=== PATIENT | male | born 1940 | race Caucasian/White ===

== ENCOUNTER → 2016-09-08 | Outpatient (CLI) | payer OTHER ==
[2016-09-08 14:01] LABS: ESTIMATED AVERAGE GLUCOSE 117 mg/dl; HA1C FLAG Normal (Normal)
[2016-09-08 16:02] LABS: AST/SGOT 11 U/L (15-37); BLOOD UREA NITROGEN 21 mg/dl (7-18); BUN/CREATININE RATIO 21.8 (10-20); CARBON DIOXIDE 28 mmol/L (21-32); CHLORIDE 104 mmol/L (98-107); CREATININE 0.95 mg/dl (0.60-1.40); GLUCOSE 110 mg/dl (70-99); POTASSIUM 4.3 mmol/L (3.5-5.1); SODIUM 141 mmol/L (136-145)
[2016-09-08 16:06] LABS: ALT/SGPT 25 U/L (12-78); CHOLESTEROL 108 mg/dl (0-200); CHOLESTEROL/HDL RATIO 2.5; HDL CHOLESTEROL 43 mg/dl; LDL CHOLESTEROL CALCULATED 48 mg/dl; TRIGLYCERIDES 84 mg/dl (0-150); VERY LOW DENSITY LIPOPROT CALC 17 mg/dl
[2016-09-08 16:33] LABS: RATIO 5.4 mcg/mg (0-30.0)
== END | disposition home or self-care (01) ==
LOC: C.LABMFLN 07:23
PROVIDERS: ATTEND Family Medicine
DX: M10.9 Gout, unspecified (principal); I10 Essential (primary) hypertension; E78.00 Pure hypercholesterolemia, unspecified; E11.40 Type 2 diabetes mellitus with diabetic neuropathy, unspecified

== ENCOUNTER → 2017-03-26 | Outpatient (CLI) | payer OTHER ==
[2017-03-26 13:25] LABS: ALT/SGPT 30 U/L (12-78); BLOOD UREA NITROGEN 17 mg/dl (7-18); BUN/CREATININE RATIO 15.2 (10-20); CALCIUM 9.6 mg/dl (8.5-10.1); CARBON DIOXIDE 31 mmol/L (21-32); CHLORIDE 105 mmol/L (98-107); CHOLESTEROL 111 mg/dl (0-200); GLUCOSE 107 mg/dl (70-99); POTASSIUM 4.4 mmol/L (3.5-5.1); SODIUM 141 mmol/L (136-145)
[2017-03-26 13:28] LABS: ALB/GLOB RATIO 1.3 (0.9-2); ALKALINE PHOSPHATASE 79 U/L (45-117); AST/SGOT 16 U/L (15-37); CHOLESTEROL/HDL RATIO 2.7; HDL CHOLESTEROL 41 mg/dl; LDL CHOLESTEROL CALCULATED 41 mg/dl; TRIGLYCERIDES 147 mg/dl (0-150); VERY LOW DENSITY LIPOPROT CALC 29 mg/dl
[2017-03-26 14:01] LABS: ESTIMATED AVERAGE GLUCOSE 114 mg/dl; HA1C FLAG Normal (Normal)
== END | disposition home or self-care (01) ==
LOC: C.LABMFLN 06:56
PROVIDERS: ATTEND Family Medicine
DX: I10 Essential (primary) hypertension (principal); M10.9 Gout, unspecified; E78.00 Pure hypercholesterolemia, unspecified; E11.40 Type 2 diabetes mellitus with diabetic neuropathy, unspecified

== ENCOUNTER → 2017-07-31 | Outpatient (CLI) | payer OTHER | END | disposition home or self-care (01) | LOC: C.LABMFLN 10:51 | PROVIDERS: ATTEND Family Medicine | DX: R10.9 Unspecified abdominal pain (principal) ==

== ENCOUNTER → 2017-09-28 | Outpatient (CLI) | payer OTHER ==
[2017-09-28 12:52] LABS: HEMOGLOBIN A1C 5.8 % (4.5-5.6)
[2017-09-28 16:17] LABS: ALT/SGPT 33 U/L (12-78); BLOOD UREA NITROGEN 15 mg/dl (7-18); CARBON DIOXIDE 32 mmol/L (21-32); CHOLESTEROL 115 mg/dl (0-200); GLUCOSE 108 mg/dl (70-99); SODIUM 141 mmol/L (136-145); URIC ACID 4.2 mg/dl (2.6-7.2)
[2017-09-28 16:20] LABS: ALKALINE PHOSPHATASE 73 U/L (45-117); AST/SGOT 17 U/L (15-37); LDL CHOLESTEROL CALCULATED 45 mg/dl
== END | disposition home or self-care (01) ==
LOC: C.LABMFLN 07:16
PROVIDERS: ATTEND Family Medicine
DX: I10 Essential (primary) hypertension (principal); M10.9 Gout, unspecified; E78.00 Pure hypercholesterolemia, unspecified; E11.40 Type 2 diabetes mellitus with diabetic neuropathy, unspecified

== ENCOUNTER → 2017-12-08 | Day surgery (SDC) | payer OTHER ==
[2017-11-30 13:59] VITALS: Ht 177.8 cm; Wt 122.7 kg
[~2017-12-08] VITALS: Ht 177.8 cm; Wt 122.7 kg
[~2017-12-08] MED LIST: ALL300 PO; CLOP1TAB15 PO; GLC/500 PO; GLUCTAB4 PO; LIDOCAINE HCL 2% 2 ML VIAL (20MG/ML) ONE; LISI40TA PO; LOVA40TA4 PO; PROPOFOL IV EMULSION 10 MG/ML 20 ML VIAL ONE
--- NOTE | 2017-12-08 08:50 | Endo History and Physical ---
History & Physical Date of Service: December 08, 2017. Chief Complaint: SCREENING Referring Physician: DR GRANGER History of Present Illness 77 yo CM who presents for screening colonoscopy. Past Surgical History Hx Cardiac Surgery: No Hx Internal Defibrillator: No Hx Pacemaker: No Hx Abdominal Surgery: Yes (HERNIA) Hx of Implantable Prosthesis: No Hx Post-Op Nausea and Vomiting: No Hx Cancer Surgery: No Hx Thoracic Surgery: No Hx Orthopedic: No Hx Urinary Tract Surgery: No Family History None Social History Smoking Status: Former Smoker Hx Substance Use: No Hx Alcohol Use: Yes (OCC BEER) Allergies Coded Allergies: Metoprolol (Verified Allergy, Unknown, RAPID HEART RATE SWEATS ALOT, ) Tramadol (Verified Allergy, Unknown, SWEATS ALOT AND RAPID HEAERT RATE, ) Current Medications Reported Home Medications Medications Dose Route/Sig Max Daily Dose Days Date Category Dose Instructions Glucosamine Msm Complex (Gdqwosqumfc-Msk-Zsl C-Manganes) 1 Tab Tab 1 Tab PO BID 11/30/17 Reported Glucophage (Metformin Hcl) 500 Mg Tab 500 Mg PO BID 11/30/17 Reported Mevacor (Lovastatin) 40 Mg Tab 40 Mg PO QPM 11/30/17 Reported Zestril (Lisinopril) 40 Mg Tab 40 Mg PO QAM 11/30/17 Reported Plavix (Clopidogrel Bisulfate) 75 Mg Tab 75 Mg PO QAM 11/30/17 Reported PT WILL CHECK WITH PCP Allopurinol 300 Mg Tab 300 Mg PO QPM 11/30/17 Reported Vital Signs Weight (Kilograms): 122.73 Height (Feet): 5 Height (Inches): 10 Physical Exam General Appearance: WD/WN, no apparent distress Respiratory/Chest: Auscultation: breath sounds normal Cardiovascular: Heart Auscultation: RRR Abdomen: Bowel Sounds: normal Inspection & Palpation: soft, non-distended, no tenderness, guarding & rebound Assessment and Plan Assessment: 77 yo CM who presents for screening colonoscopy. Plan: Proceed with colonoscopy.
--- NOTE | 2017-12-08 10:24 | Discharge Instructions ---
Endoscopy Patient Instructions Date / Procedure(s) Performed December 08, 2017. Colonoscopy Allergy Information Coded Allergies: Metoprolol (Verified Allergy, Unknown, RAPID HEART RATE SWEATS ALOT, ) Tramadol (Verified Allergy, Unknown, SWEATS ALOT AND RAPID HEAERT RATE, ) Discharge Date / Findings December 08, 2017. Colon polyps Internal hemorrhoids Medication Instructions Stopped Medication(s): PLAVIX LAST DOSE WAS 12/01/17 OK to resume all medications today as prescribed Reported Home Medications Medications Dose Route/Sig Max Daily Dose Days Date Category Dose Instructions Glucosamine Msm Complex (Vmyalvrsssd-Gcv-Jyj C-Manganes) 1 Tab Tab 1 Tab PO BID 11/30/17 Reported Glucophage (Metformin Hcl) 500 Mg Tab 500 Mg PO BID 11/30/17 Reported Mevacor (Lovastatin) 40 Mg Tab 40 Mg PO QPM 11/30/17 Reported Zestril (Lisinopril) 40 Mg Tab 40 Mg PO QAM 11/30/17 Reported Plavix (Clopidogrel Bisulfate) 75 Mg Tab 75 Mg PO QAM 11/30/17 Reported PT WILL CHECK WITH PCP Allopurinol 300 Mg Tab 300 Mg PO QPM 11/30/17 Reported Provider Instructions Activity Restrictions - No exercising or heavy lifting for 24 hours. - Do not drink alcohol the day of the procedure. - Do not drive a car or operate machinery until the day after the procedure. - Do not make any important decisions or sign important papers in 24 hours after the procedure. Following Day: - Return to full activity which may include returning to work/school. Diet Start your diet with liquids and light foods (jello, soup, juice, toast). Then eat your usual diet if not nauseated. Treatment For Common After Affects For mild abdominal pain, bloating, or excessive gas: - Rest - Eat lightly - Lie on right side Follow-Up Information Follow-up with DR GRANGER as scheduled Anesthesia Information What You Should Know You have had a procedure that required some medicine to reduce anxiety and discomfort. This treatment is called moderate sedation. After receiving the treatment, you may be sleepy, but you will be able to breathe on your own. The effects of the treatment may last for several hours. Follow these instructions along with Activity/Diet recommendations noted above: * Do NOT do anything where dizziness or clumsiness would be dangerous. * Rest quietly at home today, then you can be up and about tomorrow. * Have a responsible person stay with you the rest of today. * You may have had an I.V. today. If so, you may take the dressing off later today. Recommendations Call your doctor if: * Trouble breathing * Continuous vomiting for more than 24 hours * Temperature above 101 degrees * Severe abdominal pain or bloating * Pain not relieved by pain medicine ordered * There is increased drainage or redness from any incision * A large amount of rectal bleeding greater than 2-3 tablespoons. (If you had a polyp/s removed or have hemorrhoids, a small amount of blood - from the rectum is to be expected.) * You have any unanswered questions or concerns. IN THE EVENT OF A SERIOUS EMERGENCY, GO TO THE NEAREST EMERGENCY ROOM Your discharge instructions were prepared by provider Bud Wiggins. Patient Instructions Signature Page Eugenio Tesfaye Patient (or Guardian) Signature/Date: I have read and understand the instructions given to me by my caregivers. Caregiver/RN/Doctor Signature/Date: The above-named patient and/or guardian has received patient instructions on this date. + Original Patient Signature Page (only) stays with chart. Please make copy for patient.
--- NOTE | 2017-12-08 10:33 | GI REPORT ---
Patient Name: Eugenio Tesfaye Procedure Date: 12/08/2017 9:39 AM Date of : 1940 Admit Type: Outpatient Age: 77 Gender: Male Attending MD: Bud Wiggins DO Procedure: Colonoscopy Providers: Bud Wiggins DO Referring MD: Willi Langley Indications: Screening for colorectal malignant neoplasm Medicines: Monitored Anesthesia Care Complications: No immediate complications. Estimated Blood Loss: Estimated blood loss: none. Procedure: Pre-Anesthesia Assessment: - Prior to the procedure, a History and Physical was performed, and patient medications and allergies were reviewed. The patient's tolerance of previous anesthesia was also reviewed. The risks and benefits of the procedure and the sedation options and risks were discussed with the patient. All questions were answered, and informed consent was obtained. Prior Anticoagulants: The patient has taken Plavix (clopidogrel), last dose was 7 days prior to procedure. ASA Grade Assessment: III - A patient with severe systemic disease. After reviewing the risks and benefits, the patient was deemed in satisfactory condition to undergo the procedure. After I obtained informed consent, the scope was passed under direct vision. Throughout the procedure, the patient's blood pressure, pulse, and oxygen saturations were monitored continuously. The scope was introduced through the anus and advanced to the terminal ileum. The colonoscopy was performed without difficulty. The patient tolerated the procedure well. The quality of the bowel preparation was good. The terminal ileum, ileocecal valve, appendiceal orifice, and rectum were photographed. Findings: The perianal and digital rectal examinations were normal. Four sessile polyps were found in the sigmoid colon. The polyps were 4 to 6 mm in size. These polyps were removed with a hot snare. Resection and retrieval were complete. Non-bleeding internal hemorrhoids were found during retroflexion. The hemorrhoids were small. Impression: - Four 4 to 6 mm polyps in the sigmoid colon, removed with a hot snare. Resected and retrieved. - Non-bleeding internal hemorrhoids. Recommendation: - Resume previous diet. - Continue present medications. - Await pathology results. - Repeat colonoscopy for surveillance based on pathology results. - Return to primary care physician as previously scheduled. Bud Wiggins DO 12/08/2017 10:32:41 AM This report has been signed electronically. Note Initiated On: 12/08/2017 9:39 AM Number of Addenda: 0 I attest to the content of the Intraoperative Record and orders documented therein, exceptions below {[id number]}
[2017-12-08 10:54] VITALS: BP 111/88; PULSE 78; O2SAT 96
--- NOTE | 2017-12-08 11:05 | Anesthesiology Progress Note ---
Anesthesia Post Op Note Date & Time December 08, 2017 at 11:05 Vital Signs Pain Intensity: 0 Vital Signs Past 12 Hours Date Time Temp Pulse Resp B/P (MAP) Pulse Ox O2 Delivery O2 Flow Rate FiO2 12/08/17 10:54 78 20 111/88 (96) 96 Room Air 12/08/17 10:44 80 20 110/87 (95) 96 Room Air 12/08/17 10:29 84 20 95/44 (61) 96 Room Air 12/08/17 10:18 96/61 (73) 12/08/17 10:14 83 16 81/52 (62) 96 Room Air 12/08/17 08:49 36.4 86 20 109/69 (82) 96 Room Air Notes Mental Status: alert / awake / arousable, participated in evaluation Pt Amnestic to Procedure: Yes Nausea / Vomiting: adequately controlled Pain: adequately controlled Airway Patency, RR, SpO2: stable & adequate BP & HR: stable & adequate Hydration State: stable & adequate Anesthetic Complications: no major complications apparent
== END | disposition home or self-care (01) ==
LOC: C.GI 08:06
PROVIDERS: ATTEND Internal Medicine
DX: Z12.11 Encounter for screening for malignant neoplasm of colon (principal); D12.5 Benign neoplasm of sigmoid colon; K64.8 Other hemorrhoids; G47.33 Obstructive sleep apnea (adult) (pediatric); I10 Essential (primary) hypertension; E78.5 Hyperlipidemia, unspecified; M19.90 Unspecified osteoarthritis, unspecified site; E66.9 Obesity, unspecified; Z88.5 Allergy status to narcotic agent; Z87.891 Personal history of nicotine dependence; Z88.8 Allergy status to other drugs, medicaments and biological substances; Z86.73 Personal history of transient ischemic attack (TIA), and cerebral infarction without residual deficits; Z79.02 Long term (current) use of antithrombotics/antiplatelets; Z99.89 Dependence on other enabling machines and devices; Z79.84 Long term (current) use of oral hypoglycemic drugs

== ENCOUNTER 2019-03-24 06:51 | Inpatient (IN) ==
--- NOTE | 2019-02-24 15:29 | PAT Medication Instructions ---
Medication Instructions Date of Service February 24, 2019 Home Medications allopurinol 300 mg PO QPM apixaban [Eliquis] 5 mg PO BID xbvtyephg-fta-Q-edouard-herbal 21 [Glucosamine-MSM Complex] 1 tab PO QAM lisinopril 40 mg PO QAM lovastatin 40 mg PO PM metformin 500 mg PO BID ASK your prescriber and surgeon apixaban [Eliquis] 5 mg PO BID (in order for spinal anesthesia, apixaban/eliquis needs to be stopped 72 hours/3 days prior to surgery- please check if okay with your prescribing doctor) STOP taking 2 weeks before surgery (or as soon as possible if surgery is within 2 weeks) girzprmtn-mls-O-edouard-herbal 21 [Glucosamine-MSM Complex] 1 tab PO QAM DO NOT take the morning of surgery lisinopril 40 mg PO QAM metformin 500 mg PO BID Take evening before surgery allopurinol 300 mg PO QPM lovastatin 40 mg PO PM metformin 500 mg PO BID Other Notes If you have any questions please call us at [phone] or [phone] or [phone] or [phone]
--- NOTE | 2019-02-25 11:26 | Anesthesiology Consultation ---
Date of Service February 25, 2019 Assessment & Plan (1) Encounter for pre-operative examination: - Eliquis instructions: patient made aware that in order for spinal anesthesia, Eliquis needs to be held 72 hours prior to surgery. Patient voiced understandin g/will check if okay with prescriber. - Check [facility] AM DOS Chart Review Chart Review: Acceptable Risk for Surgery (pending surgeon-ordered PCP clearance scheduled 03/18 (Dr. Langley; [facility] [place])) and Patient seen in Pre Admission Testing Teaching & Discussion Pre-Anesthesia Teaching/Discussion Notes: Instructed NPO after midnight before surgery,except medications with 15 cc of water. Medication instructions provided according to the PAT guidelines. History Surgery Operation Date: 03/24/19 08:15 Proposed Procedures p Right Total Knee Arthroplasty - Rojelio Mosley MD Height/Weight Height: 5 ft 10 in Weight: 124.3 kg Allergies Allergy/AdvReac Type Severity Reaction Status Date / Time carisoprodol Allergy Unknown Unverified 03/08/19 14:14 metoprolol Allergy Unknown rapid Verified 02/24/19 15:33 heart rate, sweating tramadol Allergy Unknown rapid Verified 02/24/19 15:33 heart rate, sweating Medications Home Medications Medication Instructions Recorded Confirmed Last Taken apixaban [Eliquis] 5 mg PO BID 02/22/19 02/22/19 Unknown allopurinol 300 mg tablet 300 mg PO QPM #90 tab 03/08/19 03/08/19 Unknown blood sugar diagnostic strips #100 ea 03/08/19 03/08/19 Unknown dabigatran etexilate 150 mg capsule 150 mg PO BID #180 cap 03/08/19 03/08/19 Unknown edoxaban 60 mg tablet 60 mg PO DAILY 03/08/19 03/08/19 Unknown daayygpknfg-lhgzlnevtjlhydpvygshj-snm 1 tab PO .COMPLEX 03/08/19 03/08/19 Unknown P-jrduetgwn-adshym no.21 tablet lancets 33 gauge #100 ea 03/08/19 03/08/19 Unknown lisinopril 40 mg tablet 40 mg PO QAM #90 tab 03/08/19 03/08/19 Unknown lovastatin 40 mg tablet 40 mg PO PM #90 tab 03/08/19 03/08/19 Unknown metformin 500 mg tablet 500 mg PO .COMPLEX #0 tab 03/08/19 03/08/19 Unknown rivaroxaban 20 mg tablet 20 mg PO DAILY 03/08/19 03/08/19 Unknown Past Medical History Medical History Atrial fibrillation on eliquis; managed by PCP Diabetes mellitus, type 2 NIDDM Hearing deficit B/L GREGORIO Hyperlipidemia Hypertension Obesity Osteoarthritis Sleep apnea CPAP Transient ischemic attack (TIA) 2007 Exercise / Class Metabolic Activity II 4-5 Yardwork/Stairs/Walk up hill (daily bike rides) Past Surgical History Surgical History History of colonoscopy History of tonsillectomy History of tooth extraction History of umbilical hernia repair Past Anesthesia History No Hx of Anesthesia Complications and No Family Hx of Anesthesia Complications History of PONV No Hx of PONV and No Hx of Motion Sickness Social History Smoking Status: Former smoker tobacco type: cigarettes and smokeless tobacco Do You Dip or Chew Tobacco: No (Quit years ago) Smoking End Date: Quit 1986; hx 1PPD x 30 years Hx Alcohol Use: No Hx Substance Use: No substance use type: does not use Review of Systems Patient denies chest pain, shortness of breath, dyspnea on exertion, reflux, cough, wheezing, palpitations. Physical Exam Vital Signs VITALS BP 101/70 (per patient, typically low-normal BP) P 86 TEMP 97.5 SP02 95%RA RESP 18 PHYSICAL Full neck and c-spine range of motion. Full TMJ range of motion. TMD 3 finger breaths Mallampati Score 2 Dentition: full dentures upper, partial on lower Lungs: clear throughout to auscultation Cardiac: irregularly irregular, regular rate, no murmurs noted Spine: normal Carotid arteries: negative bruit Extremities: no edema Testing Laboratory Results 02/25/19 11:57 02/25/19 11:57 PT 11.5 Seconds (9.0-12.0) 02/25/19 11:57 INR 1.1 (0.9-1.1) 02/25/19 11:57 APTT 33.6 Seconds (21.0-31.0) H 02/25/19 11:57 Hemoglobin A1c 6.1 % (4.5-5.6) H 02/25/19 09:00 Urine Color Yellow 02/25/19 11:57 Urine Appearance Clear (Clear) 02/25/19 11:57 Urine pH 5.5 (4.5-7.5) 02/25/19 11:57 Ur Specific [place] 1.014 (1.000-1.030) 02/25/19 11:57 Urine Protein Negative (Negative) 02/25/19 11:57 Urine Glucose (UA) Negative (Negative) 02/25/19 11:57 Urine Ketones Negative (Negative) 02/25/19 11:57 Urine Nitrite Negative (Negative) 02/25/19 11:57 Ur Leukocyte Esterase Negative (Negative) 02/25/19 11:57 Blood Type O Positive 02/25/19 11:57 Antibody Screen NEGATIVE 02/25/19 11:57 02/25/19 09:00 Urine Culture - Final Urine,Clean Catch Three types of organisms present, all low counts probable skin yolanda. No further identifications or sensitivities to follow. Electrocardiogram Date: 04/14/18 A. fib at 61bpm. Inferior myocardial infarct. Per PCP, a. fib replaced NSR compared to 10/01/12 EKG, otherwise no other changes. Also, subsequent ECHO done 04/2018* Chest X-Ray Date: 02/25/19 No acute cardiopulmonary findings. Moderate cardiomegaly. Echocardiogram Date: 04/22/18 EF 50-55%. No RWMA. Mild cLVH. Mild MR/TR. Mild RAD/RVD/LAD.
[2019-02-25 12:24] LABS: Basophils # (auto) 0.02 K/uL (0-0.2); Basophils % (auto) 0.2 %; Eosinophils # (auto) 0.17 K/uL (0-0.5); Eosinophils % (auto) 1.9 %; Hemoglobin 15.7 g/dL (14.0-18.0); Immature Granulocytes # (auto) 0.03 K/uL (0.00-0.02); Immature Granulocytes % (auto) 0.3 %; Lymphocytes # (auto) 3.34 K/uL (1.2-3.4); Lymphocytes % (auto) 36.5 %; Mean Corpuscular Hemoglobin 32.4 pg (25-34); Mean Corpuscular Hgb Conc 35.7 g/dL (32-36); Mean Corpuscular Volume 90.9 fL (80-100); Mean Platelet Volume 11.5 fL (7.4-10.4); Monocytes # (auto) 0.59 K/uL (0.11-0.59); Monocytes % (auto) 6.4 %; Neutrophils % (auto) 54.7 %; Platelet Count 235 K/uL (130-400); RDW Coefficient of Variation 13.7 % (11.5-14.5); RDW Standard Deviation 44.8 fL (36.4-46.3); Red Blood Count 4.84 M/uL (4.7-6.1); White Blood Count 9.15 K/uL (4.8-10.8)
[2019-02-25 12:28] LABS: Appearance Urine Clear (Clear); Bilirubin Urine Negative (Negative); Blood Urine Negative (Negative); Color Urine Yellow; Glucose Urine UA Negative (Negative); Ketones Urine Negative (Negative); Leukocyte Esterase Urine Negative (Negative); Nitrite Urine Negative (Negative); Protein Urine Negative (Negative); Specific Gravity Urine 1.014 (1.000-1.030); Urobilinogen Urine Negative (Negative); pH Urine 5.5 (4.5-7.5)
[2019-02-25 12:35] LABS: INR 1.1 (0.9-1.1); Partial Thromboplastin Ratio 1.2; Partial Thromboplastin Time 33.6 Seconds (21.0-31.0); Prothrombin Time 11.5 Seconds (9.0-12.0)
--- NOTE | 2019-02-25 12:37 | XRay Report ---
XR chest Pre-admission PA/Lat CLINICAL HISTORY: Preoperative evaluation. COMPARISON STUDY: No previous studies for comparison. FINDINGS: Lung volumes are normal. Lungs are clear. There is no pneumothorax or pleural effusion. Mod erate cardiomegaly is noted. Mediastinal contours are normal. There is no evidence for pulmonary yahaira a. IMPRESSION: 1. No acute cardiopulmonary findings. 2. Moderate cardiomegaly. Electronically signed by: Darnell Bagley M.D. 02/25/2019 12:35 PM
[2019-02-25 12:46] LABS: Estimated Average Glucose 128 mg/dl; Hemoglobin A1C 6.1 % (4.5-5.6)
[2019-02-25 12:49] LABS: Albumin Level 4.1 gm/dl (3.4-5.0); BUN Creatinine Ratio 16.6 (10-20); Calcium 9.1 mg/dl (8.5-10.1); Creatinine Clr Calc Pharmacy 78.2 ml/min; Est GFR (African American) 80.3; Est GFR (Non-African American) 69.3; Potassium 4.4 mmol/L (3.5-5.1)
--- NOTE | 2019-02-26 21:20 | History & Physical Report ---
Date of Service February 26, 2019 Assessment & Plan (1) Primary osteoarthritis of right knee: Treatment options were discussed. Patient has failed conservative measures as above and would like to proceed with surgical management. Risks, benefits and alternatives to surgery including but not limited to infection, DVT, pain, stiffness, need for revision surgery, damage to blood vessels, damage to nerves, PE, , were discussed with the patient and they wish to proceed. Plan will be for right total knee arthroplasty. Plan will be for patient to resume his normal dose of Eliquis post operatively for DVT prophylaxis. Patient lives at [place] and will plan on therapy there post operatively upon discharge from the hospital. All questions were answered. We will see him back in the office two weeks post op. Surgery scheduled for 03/24/19. History of Present Illness Chief Complaint: Right knee pain Primary Care Provider: Willi Langley MD 78 year old male with PMHx significant for DM2, atrial fibrillation anticoagulated with Eliquis, HTN, hx of TIA, KIRBY, and high cholesterol presents with ongoing right knee pain. He is unable to take NSAIDs due to being on Eliquis. He has had cortisone injection in the past with really only minimal relief. He has significant osteoarthritis in this knee. He would like to proceed with knee replacement. Patient denies headaches, sweats, fevers, chills, double vision, blurred vision, cough, sore throat, dysphagia, chest pain, sob, wheezing, n/v/d/c, numbness, tingling, fatigue, urinary symptoms, mood disorders. ROS positive for right knee pain and stiffness. Allergies Allergy/AdvReac Type Severity Reaction Status Date / Time metoprolol Allergy Unknown rapid Verified 02/24/19 15:33 heart rate, sweating tramadol Allergy Unknown rapid Verified 02/24/19 15:33 heart rate, sweating Home Medications Home Medications Medication Instructions Recorded Confirmed Type allopurinol 300 mg PO QPM 02/22/19 02/22/19 History apixaban [Eliquis] 5 mg PO BID 02/22/19 02/22/19 History efoxjfrzv-vsm-C-edouard-herbal 21 1 tab PO QAM 02/22/19 02/22/19 History [Glucosamine-MSM Complex] lisinopril 40 mg PO QAM 02/22/19 02/22/19 History lovastatin 40 mg PO PM 02/22/19 02/22/19 History metformin 500 mg PO BID 02/22/19 02/22/19 History Past Med/Surg History Medical History Atrial fibrillation on eliquis; managed by PCP Diabetes mellitus, type 2 NIDDM Hearing deficit B/L GREGORIO Hyperlipidemia Hypertension Obesity Osteoarthritis Sleep apnea CPAP Transient ischemic attack (TIA) 2007 Surgical History History of colonoscopy History of tonsillectomy History of tooth extraction History of umbilical hernia repair Social History Preferred Language: Estonian Communication Ability: Effective Flow Floor Attendant Required: No Beliefs That Will Affect Care: None Current Living Situation: Spouse Other Information That Helps Us Care for You: No Feels Safe at Home: Yes Safety Concerns: Feels Safe At This Time Smoking Status: Former smoker Tobacco Type: cigarettes and smokeless tobacco ; Do You Dip or Chew Tobacco: No (Quit years ago) ; Smoking End Date: Quit 1986; hx 1PPD x 30 years ; Second Hand Exposure: No ; Tobacco Cessation Education Requested by Patient: No Hx Alcohol Use: No Hx Substance Use: No Review of Systems All systems reviewed & are unremarkable except as noted in HPI & below Physical Exam Constitutional: well developed and well nourished; no acute distress Eyes: PERRL, conjunctivae normal, anicteric sclerae ENMT: external ear and nose normal, oropharynx normal Neck: trachea midline, no thyromegaly Respiratory: normal respiratory effort, lungs clear to auscultation Cardiovascular: Rate/Rhythm: regular rate and + irregularly irregular Heart Sounds: no murmur Extremities: no edema Musculoskeletal: Right knee: Mild effusion, ROM 1-125 with crepitus, medial joint line tenderness with positive Isaac's, stable to valgus and varus stress. Skin: no rashes, warm and dry Neurologic: patellar DTR's 2+ bilat, sensation intact Psychiatric: A+Ox3, euthymic affect Results & Data Laboratory Results Lab Results 02/25/19 02/25/19 02/25/19 Range/Units 09:00 11:57 11:57 WBC 9.15 (4.8-10.8) K/uL RBC 4.84 (4.7-6.1) M/uL Hgb 15.7 (14.0-18.0) g/dL Hct 44.0 (42-52) % MCV 90.9 (80-100) fL MCH 32.4 (25-34) pg MCHC 35.7 (32-36) g/dL RDW Std Deviation 44.8 (36.4-46.3) fL RDW Coeff of Tone 13.7 (11.5-14.5) % Plt Count 235 (130-400) K/uL MPV 11.5 H (7.4-10.4) fL Immature Gran % (Auto) 0.3 % Neut % (Auto) 54.7 % Lymph % (Auto) 36.5 % Lynn % (Auto) 6.4 % Eos % (Auto) 1.9 % Baso % (Auto) 0.2 % Immature Gran # (Auto) 0.03 H (0.00-0.02) K/uL Neut # (Auto) 5.00 (1.4-6.5) K/uL Lymph # (Auto) 3.34 (1.2-3.4) K/uL Lynn # (Auto) 0.59 (0.11-0.59) K/uL Eos # (Auto) 0.17 (0-0.5) K/uL Baso # (Auto) 0.02 (0-0.2) K/uL PT 11.5 (9.0-12.0) Seconds INR 1.1 (0.9-1.1) APTT 33.6 H (21.0-31.0) Seconds PTT Ratio 1.2 Sodium (136-145) mmol/L Potassium (3.5-5.1) mmol/L Chloride (98-107) mmol/L Carbon Dioxide (21-32) mmol/L Anion Gap (3-11) BUN (7-18) mg/dl Creatinine (0.6-1.4) mg/dl Est Cr Clr Drug Dosing ml/min Est GFR ( Amer) Est GFR (Non-Af Amer) BUN/Creatinine Ratio (10-20) Glucose (70-99) mg/dl Estimat Average Glucose 128 mg/dl Hemoglobin A1c 6.1 H (4.5-5.6) % Calcium (8.5-10.1) mg/dl Albumin (3.4-5.0) gm/dl Urine Color Urine Appearance (Clear) Urine pH (4.5-7.5) Ur Specific [place] (1.000-1.030) Urine Protein (Negative) Urine Glucose (UA) (Negative) Urine Ketones (Negative) Urine Blood (Negative) Urine Nitrite (Negative) Urine Bilirubin (Negative) Urine Urobilinogen (Negative) Ur Leukocyte Esterase (Negative) Blood Type Antibody Screen 02/25/19 02/25/19 02/25/19 Range/Units 11:57 11:57 11:57 WBC (4.8-10.8) K/uL RBC (4.7-6.1) M/uL Hgb (14.0-18.0) g/dL Hct (42-52) % MCV (80-100) fL MCH (25-34) pg MCHC (32-36) g/dL RDW Std Deviation (36.4-46.3) fL RDW Coeff of Tone (11.5-14.5) % Plt Count (130-400) K/uL MPV (7.4-10.4) fL Immature Gran % (Auto) % Neut % (Auto) % Lymph % (Auto) % Lynn % (Auto) % Eos % (Auto) % Baso % (Auto) % Immature Gran # (Auto) (0.00-0.02) K/uL Neut # (Auto) (1.4-6.5) K/uL Lymph # (Auto) (1.2-3.4) K/uL Lynn # (Auto) (0.11-0.59) K/uL Eos # (Auto) (0-0.5) K/uL Baso # (Auto) (0-0.2) K/uL PT (9.0-12.0) Seconds INR (0.9-1.1) APTT (21.0-31.0) Seconds PTT Ratio Sodium 139 (136-145) mmol/L Potassium 4.4 (3.5-5.1) mmol/L Chloride 105 (98-107) mmol/L Carbon Dioxide 29 (21-32) mmol/L Anion Gap 5.0 (3-11) BUN 17 (7-18) mg/dl Creatinine 1.03 (0.6-1.4) mg/dl Est Cr Clr Drug Dosing 78.2 ml/min Est GFR ( Amer) 80.3 Est GFR (Non-Af Amer) 69.3 BUN/Creatinine Ratio 16.6 (10-20) Glucose 121 H (70-99) mg/dl Estimat Average Glucose mg/dl Hemoglobin A1c (4.5-5.6) % Calcium 9.1 (8.5-10.1) mg/dl Albumin 4.1 (3.4-5.0) gm/dl Urine Color Yellow Urine Appearance Clear (Clear) Urine pH 5.5 (4.5-7.5) Ur Specific [place] 1.014 (1.000-1.030) Urine Protein Negative (Negative) Urine Glucose (UA) Negative (Negative) Urine Ketones Negative (Negative) Urine Blood Negative (Negative) Urine Nitrite Negative (Negative) Urine Bilirubin Negative (Negative) Urine Urobilinogen Negative (Negative) Ur Leukocyte Esterase Negative (Negative) Blood Type O Positive Antibody Screen NEGATIVE Diagnostic Findings Right knee radiographs: [id number]-zkoe medial compartment with periarticular osteophyte formation and subchondral sclerosis.
[~2019-03-24 06:51] MED LIST changes: +ACETAMINOPHEN 500 MG TAB PO SCH; -ALL300 PO; +CEFAZOLIN 3000MG 72.5 ML IV SCH; -CLOP1TAB15 PO; +CeleBREX 200 MG CAP PO SCH; +FAMOTIDINE 20 MG TAB PO SCH; +GABAPENTIN 300 MG CAP PO SCH; -GLC/500 PO; -GLUCTAB4 PO; -LIDOCAINE HCL 2% 2 ML VIAL (20MG/ML) ONE; -LISI40TA PO; -LOVA40TA4 PO; +LR 500ML BOLUS, THEN 15ML/HR IV SCH; +METOCLOPRAMIDE HCL 10 MG TABLET PO SCH; +MISSING PHYSICIAN SIGNATURE ON ORDER SCH; +OXYCODONE HCL 10 MG TABCR (OXYCONTIN) PO SCH; -PROPOFOL IV EMULSION 10 MG/ML 20 ML VIAL ONE; +ROPIVACAINE 0.5% HCL/PF 150 MG, BUPIVACAINE 0.5% MPF 30 ML, EPINEPHrine 30MG/30ML (OR U... INSTIL SCH; +dexAMETHasone 4 MG TAB PO SCH
[2019-03-24] MEDS ORDERED: BUPIVACAINE 0.5 % 5 MG/1 ML PF 10ML VIAL ONE (06:55)
[2019-03-24] MEDS ORDERED: ROPIVACAINE 0.5% 5 MG/ML 30 ML VIAL ONE (06:55)
--- NOTE | 2019-03-24 07:51 | History & Physical Bridge Note ---
Date of Service March 24, 2019 History & Physical Bridge Note I have examined the patient, reviewed the History & Physical and in the interval since the performance of the History & Physical I have noted the following changes of clinical significance: no changes noted
[2019-03-24] MEDS ORDERED: ORTHO JOINT ANESTHETIC ONE (08:04)
[2019-03-24] MEDS ORDERED: BACITRACIN INJ 50,000 UNIT VIAL ONE (08:04)
[2019-03-24] MEDS ORDERED: ONDANSETRON INJ 2 MG/ML 2 ML VIAL IV PRN ×2 (08:41→12:43)
[2019-03-24] MEDS ORDERED: ePHEDrine sulfate 50 MG/ML AMP IV PRN (08:41)
[2019-03-24] MEDS ORDERED: ATROPINE SULFATE 0.1 MG/ML 10ML SYR IV PRN (08:41)
[2019-03-24] MEDS ORDERED: fentaNYL citrate 100 MCG/2 ML VIAL IV PRN (08:41)
[2019-03-24] MEDS ORDERED: MIDAZOLAM HCL 1 MG/ML 2ML VIAL ONE (09:04)
[2019-03-24] MEDS ORDERED: fentaNYL citrate 100 MCG/2 ML VIAL ONE (09:04)
[2019-03-24] MEDS ORDERED: PHENYLEPHRINE 100MCG/ML 5ML SYR ONE (09:17)
[2019-03-24] MEDS ORDERED: PROPOFOL IV EMULSION 10 MG/ML 20 ML VIAL IV ONE (09:34)
[2019-03-24] MEDS ORDERED: KETAMINE HCL INJ 50 MG/ML 10 ML VIAL ONE (10:14)
--- NOTE | 2019-03-24 10:56 | Operative Report ---
Post Operative Report Pre & Post Diagnosis Operation Date: 03/24/19 09:45 Pre-Op Diagnosis: Osteoarthritis, Right Knee Post-Op Diagnosis: Osteoarthritis, Right Knee Procedure Operation Date: 03/24/19 09:45 Actual Procedures p Right Total Knee Arthroplasty(Right) - Rojelio Mosley MD Surgeon Rojelio Mosley MD Ladler Sergo Spangler PA-C Estimated Blood Loss 20 Findings Consistent with Post-Op Diagnosis Specimens Bone and tissue Drains 2 Hemovac Anesthesia Type Spinal MAC Complications none Disposition Accompanied Patient To Recovery: No Disposition: Recovery Room Indications The patient is a 79-year-old male long knee. He has [id number] medial compartment. He is failed conservative measures including injection and anti- inflammatory medications and rehab. He wishes to proceed with a right total knee arthroplasty Description of Procedure Risks benefits and alternatives of surgery including but not limited to infe ction, DVT, pain, stiffness, need for surgery, damage to blood vessels, damage to nerves or risks of anesthesia were discussed with the patient and they wished to proceed. The patient was identified and the laterality was confirmed and marked. They received a preoperative antibiotic as well as a spinal anesthetic and an abductor canal block. A well-padded tourniquet was applied and then the limb was prepped and draped in standard manner with ChloraPrep. The limb was exsanguinated and the tourniquet was inflated. I made a standard anterior incision. I sharply incised the skin then utilized Bovie electrocautery to achieve hemostasis. I made a medial parapatellar arthrotomy and mobilized the patella laterally. I then excised the anterior horns of the medial and lateral meniscus as well as the infrapatellar fat pad. I elevated a portion of the MCL off of the tibia. I then pinned into place a patient-matched distal femoral cutting guide and made my distal femoral resection. I then pinned into place the 5 in 1 femoral cutting guide. I made my anterior, posterior and chamfer cuts. I then excised the cruciates and the remaining portions of the menisci. I then pinned into place a patient- matched tibial cutting guide and made my tibial resection. I then pinned into place the tibial plate a utilizing alignment nicolas to confirm rotation. I then cut for the post. Utilizing a lamina ladle repairer and I then removed posterior osteophytes off the femur. I then placed a trial femur into position and cut for the trochlear component. I then sequentially trialed to size the polyethylene until there was good soft tissue balancing and range of motion. I then prepared the patella with a freehand cut utilizing sagittal saw. I sized and drilled for the patella. There was good tracking to the patella no lateral release was needed. All the trial components were removed. The deep tissues were anesthetized with an ortho mix solution. Then with Simplex HV with gentamicin cement, I cemented my definitive components. Definitive components, [employer] [place] 2: Femur 8 Tibia 7 Poly 9 Patella 38 oval A betadine soak was performed. A deep drain was placed. The arthrotomy was closed with interrupted #1 Vicryl suture subcutaneous tissue was closed with interrupted 2-0 Vicryl suture. The skin was closed with with yolanda. An Acticoat and Lamar dressing were placed. Sterile dressings were applied. All needle and sponge counts were correct at the end of the procedure patient was transferred to the PACU in stable condition without apparent complication. The PA-C was necessary for assistance with procedure for assistance in positioning, prepping, draping, retraction and closure. I attest to the content of the Intraoperative Record and any orders documented therein. Any exceptions are noted below.
--- NOTE | 2019-03-24 11:44 | Anesthesiology Progress Note ---
Date of Service March 24, 2019 Anesthesia Post Procedure Vital Signs Vital Signs: Temp Pulse Pulse Resp BP Pulse Ox 03/24/19 11:35 86 16 106/85 95 03/24/19 11:28 99.7 F H 79 16 112/76 98 03/24/19 08:02 98.2 F 95 H 20 140/80 95 Pain Intensity Right Knee: Pain Intensity: 6 Transfer of Care Handoff Completed per policy Notes Mental Status: alert / awake / arousable and participated in evaluation Patient Amnestic to Procedure: Yes Nausea / Vomiting: adequately controlled Pain: adequately controlled Airway Patency, RR, SpO2: stable & adequate BP & HR: stable & adequate Hydration State: stable & adequate Neuraxial Anesthesia: was administered and sensory block is resolving Anesthetic Complications: no major complications apparent and Pt Satisfied with anesthetic care
--- NOTE | 2019-03-24 11:51 | XRay Report ---
TWO VIEWS RIGHT KNEE CLINICAL HISTORY: Postoperative examination. FINDINGS: AP and crosstable lateral portable views of the right knee are obtained. A right knee arthr oplasty is in near anatomic alignment. There has been undersurface remodeling of the patella. No acut e fracture is seen. There are expected postoperative changes around the knee including skin clips, a surgical drain, soft tissue edema, and subcutaneous gas. There is atherosclerotic calcification of th e popliteal artery. IMPRESSION: Expected postoperative changes status post right knee arthroplasty. No acute fracture is seen. Electronically signed by: Willi Chavez M.D. 03/24/2019 11:50 AM
[2019-03-24] MEDS ORDERED: HYDROmorphone INJ 0.5 MG/0.5 ML SYR IV PRN (12:43)
[2019-03-24] MEDS ORDERED: MAGNESIUM HYDROXIDE SUSP 30 ML UDC PO PRN (12:43)
[2019-03-24] MEDS ORDERED: NALOXONE HCL 0.4 MG/1 ML VIAL/CARP IV PRN (12:43)
[2019-03-24] MEDS ORDERED: SODIUM CHLORIDE 0.9% 1000ML 1,000 ML IV SCH (12:43)
[2019-03-24] MEDS ORDERED: BISACODYL 10 MG SUPP PR PRN (12:43)
[2019-03-24] MEDS ORDERED: PHARMACY GLYCEMIC MGMT CONSULT PRN (13:12)
[2019-03-24] MEDS ORDERED: GLUCOSE 10 TABS/TUBE PO PRN (13:45)
[2019-03-24] MEDS ORDERED: GLUCAGON FOR INJ 1 MG VIAL SQ PRN (13:45)
[2019-03-24] MEDS ORDERED: GLUCOSE 40% GEL 15 GM TUBE PO PRN (13:45)
[2019-03-24] MEDS ORDERED: DEXTROSE 50% 50 ML SYRINGE IV PRN (13:45)
[2019-03-24] MEDS ORDERED: CARBOHYDRATES FOR HYPOGLYCEMIA PO PRN (13:45)
[2019-03-24] MEDS: ACETAMINOPHEN 500 MG TAB PO SCH ×2 (14:15→22:07)
[2019-03-24] MEDS: INSULIN ASPART 100 UNITS/ML 3 ML PEN SC SCH ×3 (14:18→22:10)
--- NOTE | 2019-03-24 15:48 | Pharmacy Report ---
Pharmacy Glycemic Short Note 2 - Date of Service March 24, 2019 - Glycemic Short BSG Results (Last 24 hours): 03/24/19 03/24/19 03/24/19 07:43 11:30 12:54 POC Glucose 132 H 123 H 126 H OUTPATIENT ANTIDIABETIC REGIMEN: * metformin 500 mg BID * A1c 6.1% 02/25/19 ASSESSMENT: * 79 yr old T2DM male admitted for R TKA * Pt was given pre-op dexamethasone 8 mg PO therefore post prandil hyperglycemia is anticipated * Pt is maintained on oral antidiabetic agents as an outpatient * Oral agents are not recommended for inpatient use d/t drug interactions, changing PO intake, and difficulty titrating for acute hyper/hypoglycemia. ADA recommends re-initiating outpatient oral agents 1-2 days prior to discharge if/when appropriate if they were held on admission. * Will hold oral agents for admission and utilize SQ basal bolus insulin regimen which is the recommended regimen for inpatient glycemic control. * Will initiate weight based insulin dosing for insulin kg patient and titrate based on BSG trends. * A one time dose of NPH has been ordered for this evening to combat steroid induced hyperglycemia. PLAN FOR INPATIENT GLYCEMIC CONTROL: * Hold outpatient oral diabetes medications * Basal insulin * NPH x 1 dose with dinner per scale: * 8 units for BSG < 140 mg/dl * 11 units for BSG 140-180 mg/dl * 16 units for BSG > 180 mg/dl * Bolus insulin * NovoLog per scale ACHS or Q6hrs while NPO * Goal Range: Low 110 mg/dL - High 140 mg/dL * Correction Factor: 15 mg/dL/unit * Nutritional / Prandial insulin per carb ratio of 1 unit per 6 grams CHO consumed PLAN FOR DISCHARGE: * A1c indicates good outpatient glycemic control * Recommend continuation of metformin on discharge
[2019-03-24] MEDS ORDERED: NovoLIN-N (NPH) PER UNIT CHARGE SQ SCH (16:30)
[2019-03-24] MEDS: CEFAZOLIN 2000MG 2,000 MG/15 ML SYR IV SCH (18:19)
[2019-03-24] MEDS: FERROUS GLUCONATE 324 MG TAB PO SCH (18:23)
[2019-03-24] MEDS: ALLOPURINOL 300 MG TAB PO SCH (22:07)
[2019-03-24] MEDS: LOVASTATIN 20 MG TAB PO SCH (22:08)
[2019-03-24] MEDS: SENNA 8.6 MG TAB PO SCH (22:08)
[2019-03-24] MEDS: DOCUSATE SODIUM 100 MG CAP PO SCH (22:08)
[2019-03-25] MEDS ORDERED: INSULIN ASPART 100 UNITS/ML 3 ML PEN SC SCH
[2019-03-25] MEDS: CEFAZOLIN 2000MG 2,000 MG/15 ML SYR IV SCH (00:22)
[2019-03-25] MEDS ORDERED: CeleBREX 200 MG CAP PO SCH (06:00)
[2019-03-25] MEDS ORDERED: CEFAZOLIN 3000MG 72.5 ML IV SCH (06:00)
[2019-03-25] MEDS ORDERED: METOCLOPRAMIDE HCL 10 MG TABLET PO SCH (06:00)
[2019-03-25] MEDS ORDERED: OXYCODONE HCL 10 MG TABCR (OXYCONTIN) PO SCH (06:00)
[2019-03-25] MEDS ORDERED: dexAMETHasone 4 MG TAB PO SCH (06:00)
[2019-03-25] MEDS ORDERED: GABAPENTIN 300 MG CAP PO SCH (06:00)
[2019-03-25] MEDS ORDERED: ACETAMINOPHEN 500 MG TAB PO SCH (06:00)
[2019-03-25] MEDS ORDERED: FAMOTIDINE 20 MG TAB PO SCH (06:00)
[2019-03-25] MEDS: ACETAMINOPHEN 500 MG TAB PO SCH ×3 (06:10→22:25)
[2019-03-25 06:18] LABS: Hematocrit (blood only) 38.6 % (42-52); Hemoglobin 13.6 g/dL (14.0-18.0); Mean Corpuscular Hemoglobin 32.4 pg (25-34); Mean Corpuscular Hgb Conc 35.2 g/dL (32-36); Mean Corpuscular Volume 91.9 fL (80-100); Platelet Count 251 K/uL (130-400); RDW Coefficient of Variation 13.2 % (11.5-14.5); RDW Standard Deviation 44.1 fL (36.4-46.3); White Blood Count 22.15 K/uL (4.8-10.8)
[2019-03-25 06:52] LABS: BUN Creatinine Ratio 23.3 (10-20); Calcium 8.5 mg/dl (8.5-10.1); Creatinine Clr Calc Pharmacy 62.9 ml/min; Est GFR (African American) 63.7; Est GFR (Non-African American) 54.9; Potassium 4.9 mmol/L (3.5-5.1)
--- NOTE | 2019-03-25 07:17 | Orthopedic Progress Note ---
Date of Service March 25, 2019 Assessment & Plan (1) Primary osteoarthritis of right knee: POD#1 Right TKA -Pain management -DVT prophylaxis-Mireya Newton -PT/OT -AM labs-hgb 12.3 this am, creatine up to 1.2 this am. Will recheck POD#2 per PCP recommendation -D/C planning-Plans on home with OPPT-patient lives at [facility] in independent living. May consider skilled rehab based on how PT goes. He does have a bed available at [facility] if needed. Subjective POD#1 right TKA. Pain well controlled. Denies chest pain, sob, dizziness, headaches. Has been up ambulating. No other complaints Review of Systems Review of Systems: All systems reviewed & are unremarkable except as noted in HPI & below Physical Exam Physical Exam: WN/WD, seen in bedside chair. Right leg-Dressing c/d/i, good dorsiflexion-toes mobile, no calf tenderness. Results & Data Vital Signs (Past 12 Hours) Vital Signs Temp Pulse Resp BP BP Pulse Ox 03/25/19 06:58 36.3 C L 16 142/86 H 96 03/25/19 03:20 36.6 C 82 18 138/86 93 03/25/19 00:09 36.5 C 85 18 117/72 95 03/24/19 20:26 36.5 C 89 16 123/83 95
--- NOTE | 2019-03-25 08:09 | Anesthesiology Progress Note ---
Date of Service March 25, 2019 Anesthesia Post Procedure Vital Signs Vital Signs: Temp Pulse Pulse Resp BP BP Pulse Ox 03/25/19 06:58 36.3 C L 16 142/86 H 96 03/25/19 03:20 36.6 C 82 18 138/86 93 03/25/19 00:09 36.5 C 85 18 117/72 95 03/24/19 20:26 36.5 C 89 16 123/83 95 03/24/19 15:28 36.8 C 87 16 149/91 H 97 03/24/19 14:30 71 16 128/83 96 03/24/19 13:30 78 16 105/64 96 03/24/19 12:56 78 16 93/55 L 96 03/24/19 12:30 37.0 C 85 17 103/59 L 98 03/24/19 12:15 75 16 95/59 L 95 03/24/19 12:05 87 16 108/68 96 03/24/19 11:55 90 16 77/42 L 95 03/24/19 11:45 37.0 C 79 16 110/72 95 03/24/19 11:35 86 16 106/85 95 03/24/19 11:28 37.6 C H 79 16 112/76 98 Pain Intensity Right Knee: Pain Intensity: 6 Notes Mental Status: alert / awake / arousable and participated in evaluation Patient Amnestic to Procedure: Yes Nausea / Vomiting: adequately controlled Pain: adequately controlled Airway Patency, RR, SpO2: stable & adequate BP & HR: stable & adequate Hydration State: stable & adequate Neuraxial Anesthesia: was administered and sensory block resolved Anesthetic Complications: no major complications apparent and Pt Satisfied with anesthetic care
[2019-03-25] MEDS: FERROUS GLUCONATE 324 MG TAB PO SCH ×2 (08:37→18:47)
[2019-03-25] MEDS: DOCUSATE SODIUM 100 MG CAP PO SCH ×2 (08:37→20:52)
[2019-03-25] MEDS: METFORMIN HCL 500 MG TAB PO SCH ×2 (08:37→18:47)
[2019-03-25] MEDS: MULTIVITAMIN TAB PO SCH (08:38)
[2019-03-25] MEDS: APIXABAN 5 MG TABLET PO SCH ×2 (08:38→20:53)
[2019-03-25] MEDS: LISINOPRIL 40 MG TAB PO SCH (08:38)
[2019-03-25] MEDS: INSULIN ASPART 100 UNITS/ML 3 ML PEN SC SCH ×4 (08:41→22:26)
--- NOTE | 2019-03-25 11:49 | Pharmacy Report ---
Pharmacy Glycemic Short Note 2 - Date of Service March 25, 2019 - Glycemic Short BSG Results (Last 24 hours): 03/24/19 03/24/19 03/24/19 12:54 17:06 20:39 Glucose POC Glucose 126 H 145 H 180 H 03/25/19 03/25/19 03/25/19 00:00 06:00 08:30 Glucose 129 H POC Glucose 135 H 128 H OUTPATIENT ANTIDIABETIC REGIMEN: * metformin 500 mg BID * A1c 6.1% 02/25/19 ASSESSMENT: * 79 yr old T2DM male POD#1 s/p R TKA * Pt demonstrated excellent glycemic control over the past 24 hours with only one BSG above goal. * Pt received a one time dose of NPH last evening to combat steroid induced hyperglycemia. Fasting BSG of 128 mg/dL is at goal. I do not anticipate him needing further basal insulin. I will loosen Novolog CF and CR since steroid effect has worn off. * Metformin was resumed this morning per patient is tolerating an oral diet and renal function is acceptable. PLAN FOR INPATIENT GLYCEMIC CONTROL: * Resume metformin 500 mg PO BID with meals * Basal insulin * None * Bolus insulin - loosen * NovoLog per scale ACHS or Q6hrs while NPO * Goal Range: Low 110 mg/dL - High 140 mg/dL * Correction Factor: 25 mg/dL/unit * Nutritional / Prandial insulin per carb ratio of 1 unit per 8 grams CHO consumed PLAN FOR DISCHARGE: * A1c indicates good outpatient glycemic control * Recommend continuation of metformin on discharge
[2019-03-25] MEDS: OXYCODONE HCL IR 5 MG TAB (IMMEDIATE RELEASE) PO PRN ×2 (15:39→20:36)
[2019-03-25] MEDS: ALLOPURINOL 300 MG TAB PO SCH (20:52)
[2019-03-25] MEDS: LOVASTATIN 20 MG TAB PO SCH (20:53)
[2019-03-25] MEDS: SENNA 8.6 MG TAB PO SCH (20:53)
[2019-03-26] MEDS: ACETAMINOPHEN 500 MG TAB PO SCH (05:22)
[2019-03-26 06:50] LABS: Basophils # (auto) 0.02 K/uL (0-0.2); Basophils % (auto) 0.1 %; Eosinophils # (auto) 0.15 K/uL (0-0.5); Hematocrit (blood only) 32.6 % (42-52); Hemoglobin 11.6 g/dL (14.0-18.0); Immature Granulocytes # (auto) 0.07 K/uL (0.00-0.02); Immature Granulocytes % (auto) 0.5 %; Lymphocytes # (auto) 4.82 K/uL (1.2-3.4); Lymphocytes % (auto) 33.3 %; Mean Corpuscular Hgb Conc 35.6 g/dL (32-36); Mean Corpuscular Volume 90.1 fL (80-100); Mean Platelet Volume 10.7 fL (7.4-10.4); Monocytes # (auto) 1.46 K/uL (0.11-0.59); Monocytes % (auto) 10.1 %; Neutrophils # (auto) 7.96 K/uL (1.4-6.5); Platelet Count 231 K/uL (130-400); RDW Coefficient of Variation 13.3 % (11.5-14.5); RDW Standard Deviation 43.4 fL (36.4-46.3); Red Blood Count 3.62 M/uL (4.7-6.1); White Blood Count 14.48 K/uL (4.8-10.8)
[2019-03-26 07:39] LABS: BUN Creatinine Ratio 22.6 (10-20); Calcium 8.3 mg/dl (8.5-10.1); Creatinine Clr Calc Pharmacy 84.8 ml/min; Est GFR (African American) 91.4; Est GFR (Non-African American) 78.8; Potassium 4.1 mmol/L (3.5-5.1)
--- NOTE | 2019-03-26 07:43 | Orthopedic Progress Note ---
Date of Service March 26, 2019 Assessment & Plan (1) Status post right knee replacement: 79 yo male stable POD #2 s/p right TKA 1. Med management 2. DVT prophylaxis- pt has resumed Mireya, SCDs 3. PT/OT 4. D/C planning- pt to return to [facility] independent living and do OPPT Subjective Pt sitting beside, comfortable, denies complaints Physical Exam Physical Exam: Silverlon dressing in place, toes mobile, NVI, calves soft, nontender Results & Data Vital Signs (Past 12 Hours) Vital Signs Temp Pulse Resp BP Pulse Ox 03/26/19 06:46 36.4 C L 87 18 132/82 97 03/25/19 23:25 36.6 C 79 20 133/81 97 Laboratory Results 03/26/19 03/26/19 03/26/19 Range/Units 06:37 06:14 06:14 WBC 14.48 H (4.8-10.8) K/uL RBC 3.62 L (4.7-6.1) M/uL Hgb 11.6 L (14.0-18.0) g/dL Hct 32.6 L (42-52) % MCV 90.1 (80-100) fL MCH 32.0 (25-34) pg MCHC 35.6 (32-36) g/dL RDW Std Deviation 43.4 (36.4-46.3) fL RDW Coeff of Tone 13.3 (11.5-14.5) % Plt Count 231 (130-400) K/uL MPV 10.7 H (7.4-10.4) fL Immature Gran % (Auto) 0.5 % Neut % (Auto) 55.0 % Lymph % (Auto) 33.3 % [place] % (Auto) 10.1 % Eos % (Auto) 1.0 % Baso % (Auto) 0.1 % Immature Gran # (Auto) 0.07 H (0.00-0.02) K/uL Neut # (Auto) 7.96 H (1.4-6.5) K/uL Lymph # (Auto) 4.82 H (1.2-3.4) K/uL [place] # (Auto) 1.46 H (0.11-0.59) K/uL Eos # (Auto) 0.15 (0-0.5) K/uL Baso # (Auto) 0.02 (0-0.2) K/uL Sodium 128 L (136-145) mmol/L Potassium 4.1 D (3.5-5.1) mmol/L Chloride 93 L (98-107) mmol/L Carbon Dioxide 26 (21-32) mmol/L Anion Gap 9.0 (3-11) BUN 21 H (7-18) mg/dl Creatinine 0.92 D (0.6-1.4) mg/dl Est Cr Clr Drug Dosing 84.8 ml/min Est GFR ( Amer) 91.4 Est GFR (Non-Af Amer) 78.8 BUN/Creatinine Ratio 22.6 H (10-20) Glucose 125 H (70-99) mg/dl POC Glucose 134 H (70-99) Calcium 8.3 L (8.5-10.1) mg/dl 03/25/19 03/25/19 03/25/19 Range/Units 20:39 17:15 12:00 WBC (4.8-10.8) K/uL RBC (4.7-6.1) M/uL Hgb (14.0-18.0) g/dL Hct (42-52) % MCV (80-100) fL MCH (25-34) pg MCHC (32-36) g/dL RDW Std Deviation (36.4-46.3) fL RDW Coeff of Tone (11.5-14.5) % Plt Count (130-400) K/uL MPV (7.4-10.4) fL Immature Gran % (Auto) % Neut % (Auto) % Lymph % (Auto) % [place] % (Auto) % Eos % (Auto) % Baso % (Auto) % Immature Gran # (Auto) (0.00-0.02) K/uL Neut # (Auto) (1.4-6.5) K/uL Lymph # (Auto) (1.2-3.4) K/uL [place] # (Auto) (0.11-0.59) K/uL Eos # (Auto) (0-0.5) K/uL Baso # (Auto) (0-0.2) K/uL Sodium (136-145) mmol/L Potassium (3.5-5.1) mmol/L Chloride (98-107) mmol/L Carbon Dioxide (21-32) mmol/L Anion Gap (3-11) BUN (7-18) mg/dl Creatinine (0.6-1.4) mg/dl Est Cr Clr Drug Dosing ml/min Est GFR ( Amer) Est GFR (Non-Af Amer) BUN/Creatinine Ratio (10-20) Glucose (70-99) mg/dl POC Glucose 169 H 93 155 H (70-99) Calcium (8.5-10.1) mg/dl 03/25/19 Range/Units 08:30 WBC (4.8-10.8) K/uL RBC (4.7-6.1) M/uL Hgb (14.0-18.0) g/dL Hct (42-52) % MCV (80-100) fL MCH (25-34) pg MCHC (32-36) g/dL RDW Std Deviation (36.4-46.3) fL RDW Coeff of Tone (11.5-14.5) % Plt Count (130-400) K/uL MPV (7.4-10.4) fL Immature Gran % (Auto) % Neut % (Auto) % Lymph % (Auto) % [place] % (Auto) % Eos % (Auto) % Baso % (Auto) % Immature Gran # (Auto) (0.00-0.02) K/uL Neut # (Auto) (1.4-6.5) K/uL Lymph # (Auto) (1.2-3.4) K/uL [place] # (Auto) (0.11-0.59) K/uL Eos # (Auto) (0-0.5) K/uL Baso # (Auto) (0-0.2) K/uL Sodium (136-145) mmol/L Potassium (3.5-5.1) mmol/L Chloride (98-107) mmol/L Carbon Dioxide (21-32) mmol/L Anion Gap (3-11) BUN (7-18) mg/dl Creatinine (0.6-1.4) mg/dl Est Cr Clr Drug Dosing ml/min Est GFR ( Amer) Est GFR (Non-Af Amer) BUN/Creatinine Ratio (10-20) Glucose (70-99) mg/dl POC Glucose 128 H (70-99) Calcium (8.5-10.1) mg/dl
[2019-03-26] MEDS: LISINOPRIL 40 MG TAB PO SCH (08:14)
[2019-03-26] MEDS: FERROUS GLUCONATE 324 MG TAB PO SCH (08:15)
[2019-03-26] MEDS: APIXABAN 5 MG TABLET PO SCH (08:15)
[2019-03-26] MEDS: DOCUSATE SODIUM 100 MG CAP PO SCH (08:15)
[2019-03-26] MEDS: METFORMIN HCL 500 MG TAB PO SCH (08:15)
[2019-03-26] MEDS: MULTIVITAMIN TAB PO SCH (08:15)
[2019-03-26] MEDS: INSULIN ASPART 100 UNITS/ML 3 ML PEN SC SCH (08:16)
--- NOTE | 2019-04-01 11:23 | Discharge Summary ---
Date of Service April 01, 2019 Admission HPI Per Admitting Provider 78 year old male with PMHx significant for DM2, atrial fibrillation anticoagulated with Eliquis, HTN, hx of TIA, KIRBY, and high cholesterol presents with ongoing right knee pain. He is unable to take NSAIDs due to being on Eliquis. He has had cortisone injection in the past with really only minimal relief. He has significant osteoarthritis in this knee. He would like to proceed with knee replacement. Patient denies headaches, sweats, fevers, chills, double vision, blurred vision, cough, sore throat, dysphagia, chest pain, sob, wheezing, n/v/d/c, numbness, tingling, fatigue, urinary symptoms, mood disorders. ROS positive for right knee pain and stiffness. Admission Exam Per Admitting Provider Physical Exam Constitutional: well developed and well nourished; no acute distress Eyes: PERRL, conjunctivae normal, anicteric sclerae ENMT: external ear and nose normal, oropharynx normal Neck: trachea midline, no thyromegaly Respiratory: normal respiratory effort, lungs clear to auscultation Cardiovascular: Rate/Rhythm: regular rate and + irregularly irregular Heart Sounds: no murmur Extremities: no edema Musculoskeletal: Right knee: Mild effusion, ROM 1-125 with crepitus, medial joint line tenderness with positive Isaac's, stable to valgus and varus stress. Skin: no rashes, warm and dry Neurologic: patellar DTR's 2+ bilat, sensation intact Psychiatric: A+Ox3, euthymic affect Principal Diagnosis Right Knee Osteoarthritis Discharge Exam Silverlon dressing in place, toes mobile, NVI, calves soft, nontender Discharge Data Allergies Allergy/AdvReac Type Severity Reaction Status Date / Time carisoprodol Allergy Unknown Verified 03/24/19 07:53 metoprolol Allergy Unknown rapid Verified 03/24/19 07:53 heart rate, sweating tramadol Allergy Unknown rapid Verified 03/24/19 07:53 heart rate, sweating Consultations 03/24/19 12:43 Consult Case Management - Discharge Planning Routine Procedures Performed Operation Date: 03/24/19 09:45 Actual Procedures p Right Total Knee Arthroplasty(Right) - Rojelio Mosley MD Ordered Studies 03/24/19 05:00 US - OR guided needle placemen Routine Hospital Course (1) Primary osteoarthritis of right knee: Patient was admitted with the date and had the above-noted right total knee arthroplasty performed by Dr. Mosley. Patient tolerated procedure well. On his first postoperative day, he was remaining stable. Vital signs are stable he is afebrile. Intact and calves are soft nontender, neurovascular was intact. Hemoglobin was 12.3 and he was started on his PT and OT protocols weightbearing as tolerated. Continued on DVT prophylaxis and pain management. Discharge planning was for return to skilled facility versus personal fdc also at the same facility. By the second postoperative day was continue remained stable. He was progressing with his physical therapy. Silverlon dressing was remaining intact. Calves are soft nontender. Neurovascular is intact. He was thusly transferred to [facility] for further fist therapy and care. Total Time Total Time Spent Total Time Spent (In Minutes): 1 Discharge Plan Discharge Items Patient Disposition: Home - Self-Care Reason For Visit: Osteoarthritis, Right Knee Activity: Per Instructions section Non-emergency contact: Surgeon Follow-up/Referrals: Willi Langley MD [Primary Care Provider] - Add Termite Exterminator Provider Instructions: ACTIVITY RECOMMENDATIONS: SELF CARE INSTRUCTIONS AFTER TOTAL KNEE REPLACEMENT A. You may need to continue a physical therapy program after discharge from the hospital. There are several options available to you. Your doctor will assist you in selecting the best one for you. 1. An out-patient facility 2 to 3 times a week for therapy or home therapy. 2. Continue working on all exercises taught to you in the hospital. Your goals should be to increase bending of your knee to 90 degrees and beyond and to fully straighten your knee. B. You may progress at your own pace from walking with a walker or crutches to a cane; then to no assistive devices. C. Make walking a part of your daily routine. Be up as much as comfortable with rest periods throughout the day. Rest with leg elevation is very important. Use the ice wrap frequently for the first 3-4 weeks. D. There are no restrictions on activities. You may ride in a car, shop, pa rticipate in technology infusion specialist and all social activities. E. Wear the long elastic stockings (ROSSI hose) 20 hours a day for 2 weeks after surgery. They can be removed several times a day for laundering and for a bath. F. You may shower, no tub baths until cleared by your doctor. SPECIAL CARE INSTRUCTIONS: VERY IMPORTANT TO READ AND REVIEW A. There are a few signs you need to watch for after you are home. Call [facility] if you notice any of the followin. Increased severe knee pain. Some pain is expected especially when you exercise. 2. Increased swelling in your leg or knee; pain or swelling of the calf muscle in either lower leg. 3. Any fluid drainage from the incision. 4. Shortness of breath or chest pain. B. Please call [facility] at if you have any concerns or questions about your operation or recovery. The doctor or his nurse will return your call promptly. C. You must take antibiotics before dental work, bladder, bowel or other surgery. Your doctor will provide you with a permanent care to carry describing this precaution. IMPORTANT: * REMEMBER TO TAKE ASPIRIN, 81 MG, TWICE DAILY FOR 4 WEEKS UNLESS OTHERWISE DIRECTED. THIS IS YOUR BLOOD THINNER. * HIGH RISK PATIENTS MAY BE PRESCRIBED A STRONGER BLOOD THINNER. THIS WILL BE PROVIDED AT DISCHARGE. * CALL IF INCREASED PAIN, REDNESS, DRAINAGE OR FEVER GREATER THAT 101. * WEAR ROSSI HOSE 20 HOURS PER DAY FOR 2 WEEKS. Silverlon- This is a large adhesive bandage that contains silver ions. This helps your incision heal by fighting off bacteria and protecting it from the outside environment. You are permitted to shower with this dressing. This will remain on your incision for 7 days and then should be removed. Some visible blood or drainage through the dressing window is normal. If there is sig nificant drainage or leaking noted before the 7 days notify your doctor's office immediately. Once removed, keep incision clean and dry. If there is any drainage or redness noted, please call your surgeon. FOLLOW UP VISIT: If appointment is not already scheduled: Please call [facility] to make a follow-up appointment for 2 weeks after your surgery at . Stand-Alone Forms: [employer], Opioid Pain Management Medications and DC Order Prescriptions: New acetaminophen [Tylenol Extra Strength] 500 mg Tablet 1,000 mg PO Q8 Qty: 0 RF: 0 oxycodone 5 mg tablet 5 - 10 mg PO Q6 PRN (Reason: pain) Qty: 30 RF: 0 ondansetron HCl [Zofran] 4 mg tablet 4 mg PO Q8 PRN (Reason: nausea and vomiting) Qty: 20 RF: 0 cefadroxil 500 mg capsule 500 mg PO BID Qty: 28 RF: 0 Continued OneTouch Verio strip .ROUTE .MEDSUPPLY Qty: 100 RF: 0 lancets [OneTouch Delica Lancets] 33 gauge misc .ROUTE .MEDSUPPLY Qty: 100 RF: 3 allopurinol 300 mg tablet 300 mg PO QPM Qty: 90 RF: 3 lisinopril 40 mg tablet 40 mg PO QAM Qty: 90 RF: 3 lovastatin 40 mg tablet 40 mg PO PM Qty: 90 RF: 3 Glucosamine-MSM Complex tablet 1 tab PO .COMPLEX RF: 0 Eliquis 5 mg Tablet 5 mg PO BID RF: 0 metformin 500 mg tablet 500 mg PO BID RF: 0 Discontinued Tylenol Extra Strength 500 mg 2 tab PO HS PRN (Reason: Pain) RF: 0 Discharge Orders: Discharge Order (Routine); Ordered 03/26/19 Ordered By: Jean Bui/Other Patient Handouts: DVT Prevent Admission Data Admit Date/Time: 03/24/19 11:33 Attending Provider: Rojelio Mosley Admit Provider: Rojelio Mosley Primary Care Provider: Willi Langley Other Interventions: Discharge Summary Assessment (RN) Last Done: 03/26/19 09:27 DC Date/Time DO NOT enter until pt leaves facility: 03/26/19 10:42
== END 2019-03-26 10:42 | disposition home or self-care (01) | DRG 470 ==
LOC: ASU 06:51 → 3E 11:33